=== PATIENT | male | born 1940 | race Caucasian/White ===

== ENCOUNTER → 2017-09-07 | Outpatient (CLI) | payer MEDICARE | LOC: M.CT 08:30 | DX: Z00.01 Encounter for general adult medical examination with abnormal findings (principal) ==

== ENCOUNTER 2020-11-24 16:07 | Emergency (ER) | payer MEDICARE ==
[~2020-11-24] VITALS: Ht 165.1 cm; Wt 70.7 kg
[2020-11-24] MEDS ORDERED: ASA81BEC PO (16:26)
[2020-11-24] MEDS ORDERED: OMEPRAZOLE40 MG PO (16:27)
[2020-11-24] MEDS ORDERED: LOTENSIN20 MG PO (16:27)
[2020-11-24] MEDS ORDERED: ATENOLOL-CHLOR1 EAC2 PO (16:27)
[2020-11-24] MEDS ORDERED: CLONIDINE HCL0.3 M3 PO (16:28)
[2020-11-24] MEDS ORDERED: SIMVASTATIN80 MG PO (16:28)
[2020-11-24 16:36] LABS: HEMATOCRIT 41.1 % (42.0-52.0); HEMOGLOBIN 14.5 gm/dL (14.0-18.0); MCH 31.1 pg (26.0-34.0); MCHC 35.2 g/dL (28.0-37.0); MCV 88.3 fL (80.0-100.0); MPV 8.4 fl. (7.2-11.1); NUCLEATED RBCS 0 /100WBC; PLATELET COUNT* 278 thou/uL (150-400); RBC 4.66 mil/uL (4.50-6.00); RDW-CV 13.4 % (10.5-14.5); WBC 9.5 thou/uL (4.0-11.0)
[2020-11-24 16:58] LABS: CALCIUM 8.9 mg/dL (8.5-10.1); CREATININE 1.4 mg/dL (0.6-1.3)
[2020-11-24 17:04] LABS: ABSOLUTE EOSINOPHILS 0.1 thou/uL (0.0-0.7); ABSOLUTE LYMPHOCYTES 1.5 thou/uL (0.8-5.3); ABSOLUTE MONOCYTES 0.5 thou/uL (0.0-1.2); ABSOLUTE NEUTROPHILS 7.4 thou/uL (1.6-8.1)
[2020-11-24 17:05] LABS: PLATELET ESTIMATE ADEQUATE
[2020-11-24 17:10] LABS: ALBUMIN 4.1 g/dL (3.4-5.0); TOTAL BILIRUBIN 0.8 mg/dL (<0.1-1.0); TOTAL PROTEIN 8.4 g/dL (6.4-8.2)
[2020-11-24 17:30] LABS: URINE BILIRUBIN NEGATIVE (Negative); URINE BLOOD TRACE (Negative); URINE CLARITY CLEAR; URINE COLOR YELLOW; URINE GLUCOSE-RANDOM NEGATIVE (Negative); URINE KETONES TRACE (Negative); URINE LEUKOCYTES-REFLEX NEGATIVE (Negative); URINE NITRITE-REFLEX NEGATIVE (Negative); URINE PROTEIN NEGATIVE (Negative); URINE SPECIFIC GRAVITY 1.025 (1.005-1.030); URINE UROBILINOGEN 0.2 E.U./dl (0.2-1.0)
[2020-11-24 18:05] VITALS: BP 175/78
--- NOTE | 2020-11-25 11:46 | EKG ---
[place] [address] ELECTROCARDIOGRAM REPORT Name: SOLEDAD HODGES Room: 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
== END 2020-11-24 18:05 | disposition home or self-care (01) ==
LOC: M.ERS 16:07
PROVIDERS: Family Medicine
DX: R53.1 Weakness (principal); I12.9 Hypertensive chronic kidney disease with stage 1 through stage 4 chronic kidney disease, or unspecified chronic kidney disease; E11.22 Type 2 diabetes mellitus with diabetic chronic kidney disease; N18.9 Chronic kidney disease, unspecified; E78.5 Hyperlipidemia, unspecified; Z88.2 Allergy status to sulfonamides; Z88.1 Allergy status to other antibiotic agents; Z79.82 Long term (current) use of aspirin; Z79.899 Other long term (current) drug therapy

== ENCOUNTER → 2021-01-10 | Outpatient (CLI) | payer MEDICARE ==
[~2021-01-10] MED LIST: ASA81BEC PO; ATENOLOL-CHLOR1 EAC2 PO; CLONIDINE HCL0.3 M3 PO; LOTENSIN20 MG PO; OMEPRAZOLE40 MG PO; SIMVASTATIN80 MG PO
--- NOTE | 2021-01-10 16:02 | 2DMMODE ---
[place] [address] 2 D/M-MODE ECHOCARDIOGRAM Name: SOLEDAD HODGES Room: [facility]#: [id number] Admission: 01/10/21 Attend Phys: He Hummel, Discharge: Date of : 44 Date of Service: 01/10/21 1601 Report #: [id number] THIS REPORT FOR: cc: He Hummel John E. DO Holkins, John M. MD [facility] ~ APPROVED REPORT Study performed: 01/10/2021 10:54:12 EXAM: Comprehensive 2D, Doppler, and color-flow Echocardiogram Patient Location: Out-Patient BSA: 1.80 HR: 65 bpm BP: 110/82 mmHg Other Information Study Quality: Good Indications Hypertension/HDD 2D Dimensions IVSd: 9.25 (7-11mm) LVOT Diam: 20.25 (18-24mm) LVDd: 43.76 mm PWd: 10.89 (7-11mm) Ascending Ao: 29.64 (22-36mm) LVDs: 27.11 (25-40mm) Aortic Root: 27.25 mm Volumes Left Atrial Volume (Systole) LA ESV Index: 18.70 mL/m2 Aortic Valve AoV Peak Neo.: 0.76 m/s AO Peak Gr.: 2.33 mmHg LVOT Max P.71 mmHg AO Mean Gr.: 1.14 mmHg LVOT Mean P.91 mmHg LVOT Max V: 0.65 m/s AO V2 VTI: 15.74 cm LVOT Mean V: 0.45 m/s CHUCK (VTI): 3.39 cm2 LVOT V1 VTI: 16.55 cm Mitral Valve E/A Ratio: 0.69 [place] [address] 2 D/M-MODE ECHOCARDIOGRAM Name: SOLEDAD HODGES Room: [facility]#: [id number] Admission: 01/10/21 Attend Phys: He Hummel, Discharge: Date of : 44 Date of Service: 01/10/21 1601 Report #: [id number] MV Decel. Time: 240.35 ms MV E Max Neo.: 0.58 m/s MV PHT: 69.70 ms MVA (PHT): 3.16 cm2 TDI E/Lateral E': 9.67 E/Medial E': 9.67 Medial E' Neo.: 0.06 m/s Lateral E' Neo.: 0.06 m/s Pulmonary Valve PV Peak Neo.: 0.86 m/s PV Peak Gr.: 2.97 mmHg Tricuspid Valve RAP Estimate: 5.00 mmHg TR Peak Gr.: 30.25 mmHg RVSP: 35.25 mmHg PA Pressure: 35.25 mmHg Left Ventricle The left ventricle is normal size. There is normal LV segmental wall motion. There is normal left ventricular wall thickness. Left ventricular systolic function is normal. The left ventricular ejection fraction is within the normal range. LVEF is 55-60%. Grade I - abnormal relaxation pattern. Right Ventricle The right ventricle is normal size. The right ventricular systolic function is normal. Atria The left atrium size is normal. The right atrium size is normal. Aortic Valve The aortic valve is normal in structure. No aortic regurgitation is present. There is no aortic valvular stenosis. Mitral Valve The mitral valve is normal in structure. Mild mitral regurgitation. No evidence of mitral valve stenosis. Tricuspid Valve The tricuspid valve is normal in structure. Mild tricuspid regurgitation. [place] [address] 2 D/M-MODE ECHOCARDIOGRAM Name: SOLEDAD HODGES Room: [facility]#: [id number] Admission: 01/10/21 Attend Phys: He Hummel, Discharge: Date of : 44 Date of Service: 01/10/21 1601 Report #: [id number] The pulmonary valve is normal in structure. There is no pulmonic valvular regurgitation. Great Vessels The aortic root is normal in size. IVC is dilated and collapses <50% with inspiration. Pericardium There is no pericardial effusion. <Conclusion> The left ventricle is normal size. There is normal left ventricular wall thickness. Left ventricular systolic function is normal. The left ventricular ejection fraction is within the normal range. LVEF is 55-60%. Grade I - abnormal relaxation pattern. The right ventricle is normal size. The left atrium size is normal. The right atrium size is normal. The aortic valve is normal in structure. The mitral valve is normal in structure. Mild mitral regurgitation. The tricuspid valve is normal in structure. Mild tricuspid regurgitation. IVC is dilated and collapses <50% with inspiration. There is no pericardial effusion. There is normal LV segmental wall motion. <ELECTRONICALLY SIGNED> By: He Urbina MD, FACC 01/10/21 1601 160 160 He Urbina MD, FACC /INF
== END ==
LOC: M.CRD 10:00
PROVIDERS: ATTEND Family Medicine
DX: I08.1 Rheumatic disorders of both mitral and tricuspid valves (principal); I10 Essential (primary) hypertension